=== PATIENT | male | born 1965 | race Caucasian/White ===

== ENCOUNTER 2019-08-06 18:34 | Emergency (ER) | payer MEDICAID ==
[~2019-08-06] VITALS: Ht 182.9 cm; Wt 83.9 kg
--- NOTE | 2019-08-06 18:34 | NUR ---
ED Nurse Note: BROUGHT IN BY [facility] FOR FACIAL TRAUMA DUE TO ETOH. PATIENT TRIPPED AND FELL ON FACE. PATIENT OPENS EYES SPONTANEOUSY; SLURRED SPEECH. CHANGED INTO GOWN; PLACED ON BED. SIDERAILS RAISED X3; BED LOCKED AT LOWEST POSITION. WILL CONTINUE TO MONITOR.
--- NOTE | 2019-08-06 18:38 | NUR ---
ED Nurse Note: URINE COLLECTED; SENT DOWN TO LAB.
--- NOTE | 2019-08-06 19:03 | NUR ---
ED Nurse Note: IV ACCESS ESTABLISHED. BLOOD COLLECTED; SENT DOWN TO LAB.
[2019-08-06 19:31] LABS: BASOPHILS % (AUTO) 0.9 % (0.0-2.0); EOSINOPHILS % (AUTO) 2.7 % (0.0-3.0); HEMATOCRIT 51.2 % (42.0-52.0); LYMPHOCYTES % (AUTO) 20.8 % (20.0-45.0); MEAN CORPUSCULAR VOLUME 90 FL (80-99); MONOCYTES % (AUTO) 4.2 % (1.0-10.0); NEUTROPHILS % (AUTO) 71.4 % (45.0-75.0); PLATELET COUNT 221 K/UL (150-450); RED BLOOD COUNT 5.71 M/UL (4.70-6.10); RED CELL DISTRIBUTION WIDTH 13.4 % (11.6-14.8); WHITE BLOOD COUNT 9.6 K/UL (4.8-10.8)
--- NOTE | 2019-08-06 19:31 | Diagnostic Imaging Report ---
Indications: Head and facial trauma due to fall Technique: Spiral acquisitions obtained through the brain. Angled axial and coronal 5 x 5 mm slices were reconstructed. Total dose length product 1045 mGycm. CTDI vol(s) 53 mGy. Dose reduction achieved using automated exposure control Comparison: None. Findings: No acute intracranial hemorrhage or edema. No mass effect nor midline shift. Normal rocha-white differentiation. Normal size ventricles and extra axial CSF spaces. Intact calvarium. Visualized orbits are unremarkable except for minimal medial deviation of the right medial orbital wall. There is mild sinus mucosal thickening. Impression: Negative for acute intracranial bleed or mass effect This agrees with the preliminary interpretation provided overnight by [facility]. The CT scanner at [facility] is accredited by the [employer] and the scans are performed using protocols designed to limit radiation exposure to as low as reasonably achievable to attain images of sufficient resolution adequate for diagnostic evaluation.
[2019-08-06 19:37] LABS: ANION GAP 13 mmol/L (5-15); BLOOD UREA NITROGEN 17 mg/dL (7-18); CALCIUM 8.9 MG/DL (8.5-10.1); CARBON DIOXIDE 24 MMOL/L (21-32); CHLORIDE 105 MMOL/L (98-107); POTASSIUM 3.6 MMOL/L (3.5-5.1); SODIUM 142 MMOL/L (136-145)
--- NOTE | 2019-08-06 19:39 | Diagnostic Imaging Report ---
Indications: Facial trauma status post fall Technique: Spiral images obtained through the facial bones. No IV contrast utilized. Multiplanar reconstructions were generated.Total dose length product 402 mGycm. CTDIvol(s) 15 mGy. Dose reduction achieved using automated exposure control Comparison: none Findings: There is chronic appearing medial displacement of the right medial orbital wall. No acute fractures. There is sigmoid nasal septal deviation. There is mucosal thickening of the left maxillary and bilateral sphenoid sinuses. The optic globes and retroseptal orbits are intact. Visualized intracranial structures are unremarkable. Defects of the right lateral maxillary incisor and right maxillary canine tooth are noted, could represent fractures are evident.. There is evidence of multiple dental caries. There is evidence of multiple prior tooth extractions. The included cervical spine is unremarkable Impression: No acute bony trauma Dental disease, as described Cannot rule out fractures of the right lateral incisor lateral canine tooth-correlate with clinical findings This agrees with the preliminary interpretation provided overnight by [facility], with minor variation. The CT scanner at [facility] is accredited by the [employer] and the scans are performed using protocols designed to limit radiation exposure to as low as reasonably achievable to attain images of sufficient resolution adequate for diagnostic evaluation.
[2019-08-06 19:42] LABS: ALANINE AMINOTRANSFERASE 38 U/L (12-78); ALBUMIN 3.7 G/DL (3.4-5.0); ALBUMIN/GLOBULIN RATIO 0.9 (1.0-2.7); ALKALINE PHOSPHATASE 90 U/L (46-116); BILIRUBIN,TOTAL 0.2 MG/DL (0.2-1.0)
[2019-08-06 19:55] LABS: ASPARTATE AMINO TRANSFERASE 25 U/L (15-37)
[2019-08-06 21:06] LABS: APPEARANCE,URINE CLOUDY; BILIRUBIN, URINE NEGATIVE (NEGATIVE); COLOR,URINE PALE YELLOW; GLUCOSE, URINE (UA) 1+ (NEGATIVE); KETONES,URINE NEGATIVE (NEGATIVE); LEUKOCYTE ESTERASE ,URINE 2+ (NEGATIVE); NITRITE,URINE POSITIVE (NEGATIVE); PH,URINE 5 (4.5-8.0); PROTEIN,URINE 2+ (NEGATIVE); UROBILINOGEN,URINE NORMAL MG/DL (0.0-1.0)
[2019-08-06] MEDS ORDERED: cefTRIAXone 1 GM in NS 55 ML IVPB ONE (21:15)
[2019-08-06 21:36] VITALS: BP 158/99
--- NOTE | 2019-08-06 21:36 | NUR ---
HAND-OFF: Report given to MORIS BUSTOS. PATIENT IN STABLE CONDITION.
--- NOTE | 2019-08-06 22:16 | Emergency Room Report ---
History of Present Illness General Chief Complaint: Alcohol Intoxication Source: Patient (Shalonda Spivey) Present Illness HPI 54-year-old male with no known significant past medical history brought in by paramedics after facial trauma due to alcohol intoxication. Patient does not respond to any of the questions. Not a good historian. Minor abrasions noted on face. Appears to be stable with stable vital signs. (Shalonda Spivey) Allergies: Coded Allergies: UNABLE TO ASSESS (Unverified , 08/06/19) Patient History Past Medical History: see triage record Past Surgical History: unable to obtain Pertinent Family History: none Immunizations: UTD Reviewed Nursing Documentation: PMH: Agreed; PSxH: Agreed (Shalonda Spivey) Nursing Documentation-PMH Past Medical History: Deferred (Shalonda Spivey) Review of Systems All Other Systems: negative except mentioned in HPI (Shalonda Spivey) Physical Exam Vital Signs Date Time Temp Pulse Resp B/P (MAP) Pulse Ox O2 Delivery O2 Flow Rate FiO2 08/06/19 18:29 98.2 101 18 166/110 (128) 99 Room Air Sp02 EP Interpretation: reviewed, normal General Appearance: no apparent distress, alert, GCS 15, non-toxic Head: other - Facial abrasions noted Eyes: bilateral eye normal inspection, bilateral eye PERRL ENT: hearing grossly normal, normal pharynx, no angioedema, normal voice Neck: full range of motion, supple, no meningismus, no bony tend, supple/symm/ no masses Respiratory: chest non-tender, lungs clear, normal breath sounds, no rhonchi, no wheezing, speaking full sentences Cardiovascular #1: regular rate, rhythm, no edema, no murmur, normal capillary refill Gastrointestinal: normal bowel sounds, non tender, soft, non-distended, no guarding, no rebound Genitourinary: no CVA tenderness Musculoskeletal: back normal, normal range of motion, gait/station normal, non- tender Neurologic: motor strength/tone normal, distal neuro normal, sensory intact Psychiatric: other - Intoxicated Skin: no rash Lymphatic: no adenopathy (Shalonda Spivey) Medical Decision Making PA Attestation All my diagnosis and treatment plans were reviewed ad discussed with my supervising physician Dr. Ríos (Shalonda Spivey) Diagnostic Impression: Primary Impression: Acute alcoholic intoxication Qualified Codes: F10.920 - Alcohol use, unspecified with intoxication, uncomplicated Additional Impressions: UTI (urinary tract infection) Qualified Codes: N30.00 - Acute cystitis without hematuria Head injury, acute Qualified Codes: S09.90XA - Unspecified injury of head, initial encounter Facial abrasion Qualified Codes: S00.81XA - Abrasion of other part of head, initial encounter ER Course 54-year-old male with no known significant past medical history brought in by paramedics after facial trauma due to alcohol intoxication. Patient does not respond to any of the questions. Not a good historian. Minor abrasions noted on face. Appears to be stable with stable vital signs. Ddx considered but are not limited to: Alcohol intoxication with altered level of consciousness, alcohol intoxication causing pancreatitis, alcohol abuse, multi drug use and alcohol intoxication Vital signs: are WNL, pt. is afebrile H&PE are most consistent with: alcohol intoxication, UTI ORDERS: Blood serum alcohol level, CBC, CMP, UA, tox screen, head CT no contrast ER intervention: NS bolus, Pepcid, Zofran I signed out the patient to Dr. Stewart at 10PM (Shalonda Spivey) ER Course Patient signed out to me. He presents with head and facial injury secondary to intoxication. CT head and facial bones were negative. He slept through the night here without any problem. He said he is not homeless. He wants to go home now. Will discharge home. (Stan Stewart MD) ER Course Urine culture result shows resistance to Keflex. We attempted to call patient with there is no phone number on file. We send certified letter to his house (Shane Ríos MD) CT/MRI/US Diagnostic Results CT/MRI/US Diagnostic Results #1: Imaging Test Ordered: CT head no contrast Impression No intracranial bleed, no skull fracture CT/MRI/US Diagnostic Results #2: Imaging Test Ordered: CT facial bone no contrast Impression No intracranial bleed, no fracture (Shalonda Spivey) Last Vital Signs Date Time Temp Pulse Resp B/P (MAP) Pulse Ox O2 Delivery O2 Flow Rate FiO2 08/06/19 18:29 98.2 101 18 166/110 (128) 99 Room Air (Shalonda Spivey) Status: improved (Stan Stewart MD) Disposition: HOME, SELF-CARE Condition: Stable Scripts Cephalexin* (KEFLEX*) 500 Mg Capsule 500 MG ORAL TID, #21 CAP Prov: Stan Stewart MD 08/07/19 Patient Instructions: Alcohol Intoxication, [id number] Additional Instructions: Stop drinking alcohol. Follow-up with your doctor in 7 days. Return if symptoms worsen. Shalonda Spivey Aug 06, 2019 22:16 Stan Stewart MD Aug 07, 2019 01:04 Shane Ríos MD Aug 10, 2019 14:21
[2019-08-06 23:46] VITALS: BP 148/78
[2019-08-07 00:22] VITALS: BP 138/75
[2019-08-07] MEDS ORDERED: CEPHALEXIN500 MG ORAL (01:04)
--- NOTE | 2019-08-07 01:10 | NUR ---
ED Nurse Note: Patient provided address to charge nurse.
--- NOTE | 2019-08-07 01:20 | NUR ---
ER DISCHARGE NOTE: Patient is cleared to be discharged per ERMD, pt is aox4, on room air, with stable vital signs. pt was given dc and prescription instructions, pt was able to verbalize understanding, pt id band and iv site removed intact without complications. pt is able to ambulate with steady gait. pt took all belongings. pt stable upon discharge.
[2019-08-07 01:25] VITALS: BP 142/82
--- NOTE | 2019-08-07 10:34 | Diagnostic Imaging Report ---
Indication: Reason For Exam: PAIN Technique: One view of the chest Comparison: none Findings: The heart is enlarged. There is mild cardiomegaly. There is interstitial congestion. The pleural spaces are clear. No focal airspace consolidation. Impression: Cardiomegaly with mild interstitial congestion
== END 2019-08-07 01:25 | disposition home or self-care (01) ==
LOC: EDBD 18:34 → EMR 23:59
DX: F10.920 Alcohol use, unspecified with intoxication, uncomplicated (principal); N30.00 Acute cystitis without hematuria; S00.81XA Abrasion of other part of head, initial encounter; S09.90XA Unspecified injury of head, initial encounter; X58.XXXA Exposure to other specified factors, initial encounter; Y93.9 Activity, unspecified; Y92.9 Unspecified place or not applicable; Y90.7 Blood alcohol level of 200-239 mg/100 ml
CPT/HCPCS: 36415; 70450; 70486; 71045; 80053; 80307; 81003; 84484; 85025; 87086; 87181; 93005; 96361; 96365; 96375; G0480; J0696; J2405; J7030; S0028; Z7502; 99284